=== PATIENT | male | born 1985 | race Caucasian/White ===

== ENCOUNTER → 2017-01-24 | Day surgery (SDC) | payer OTHER ==
[2017-01-24] VITALS (11 sets, daily range): BP systolic 116–161; BP diastolic 74–99; PULSE 66–107; RESP 8–26; O2SAT 92–100
[~2017-01-24] VITALS: Ht 180.3 cm; Wt 107.8 kg
[~2017-01-24] MED LIST: Albuterol HFA 60 Puff 8 Gm Inhaler INHALATION ONE; Albuterol-Ipratropium 3 mL Inhalation Solution NEB PRN; Bupivacaine-MPF 0.5% 30 mL Inj INFILTRATE ONE; CeFAZolin 2 Gm/50 mL D5W Duplex Bag IV ONE; CeFAZolin Inj 2 GM in IV Premix 1 EACH IV ONE; Dexamethasone 4 mg/mL Inj ONE; EPHEDrine Sulfate 50 mg/mL Inj IVPUSH PRN; HYDROmorphone 1 mg/mL Inj IVPUSH PRN; Lactated Ringer's 1,000 ML IV ONE; Lactated Ringer's 1,000 ML IV SCH; Lactated Ringer's 500 ML IV PRN; Lidocaine 1%-Epi 1:100,000 20 mL Inj NERVEBLOCK ONE; MULT-1018 PO; MetoCLOpramide 5 mg/mL 2 mL Inj IVPUSH PRN; OXYC-465 PO; Ondansetron 2 mg/mL 2 mL Inj IVPUSH PRN; Phenylephrine 10,000 mCg/mL Inj IVPUSH PRN; Propofol 10 mg/mL 20 mL Inj ONE; Succinylcholine Chloride 20 mg/mL 5 mL Inj ONE; fentaNYL-PF 50 mCg/mL 2 mL Inj IVPUSH PRN; fentaNYL-PF 50 mCg/mL 2 mL Inj ONE; oxyCODONE-Acetamin 5-325 mg Tablet PO PRN
--- NOTE | 2017-01-24 10:19 | PCM.HPANE ---
Patient Data Surgeon Admitting Provider: Attending Provider:Ezequiel Andrews DPM Primary Care Physician:Samson Fritz Other Provider:Elaine Gtz Anesthesia Reason for Visit Left Foot Gastrocnemius Equinos,Plantar Fasciitis Ht/WT & BMI Height (Feet): 5 Height (Inches): 11 Weight (Kilograms): 107.8 Body Mass Index 33.00 Allergies Coded Allergies: naproxen (Verified Allergy, Intermediate, upset stomach, 01/22/17) Past Anesthesia History Anesthesia History: Denies:: Abnormal Airway, Anesthesia Reactions, Difficult Intubation, Fam Anesthesia Reaction, Fam Malignant Hypertherm, Malignant Hyperthermia Diabetes History Hx Diabetes?: No MRSA MRSA: No Medications Hypertension Medication: No Home Meds Incl Beta Ladan: No Reported Medications Multivitamin (Multi Vitamin Daily)1 Each Tablet1 Each PO DAILY 30 Days Ref 0 01/17/17 oxyCODONE-Acetaminophen 7.5-325 mg 1 Each Tablet1 Tab PO Q6H PRN For Pain Ref 0 01/17/17 History History of ENT Problems?: No HEENT History: Denies:: Abnormal Airway Difficult Intubation Dysphagia Hearing Problem Sinus Problem TMJ Denture Type: None Teeth Condition: Within Normal Limits Hx of Heart Problems?: No Cardiovascular History: Denies:: AICD Abdominal Aortic Aneurism Atrial Fibrillation Cardiac Surgery Chest Pain Congestive Heart Failure Coronary Artery Disease Edema Heart Murmur Hypertension Irregular Heartbeat Pacemaker Peripheral Vascular Rheumatic Fever Thrombophlebitis Valvular Heart Disease Hx of Respiratory Problem?: No Respiratory History: Denies:: Use of C-PAP Machine Use of Inhalers / NEBS Hx Neurologic Problems?: No Neurological History: Denies:: CVA Seizures TIA Hx of GI Problems?: No Gastrointestinal History: Denies:: Cirrhosis Gastroesphageal Reflux Liver Disease Hx of Problems?: No Genitourinary History: Denies:: HX of Hemodialysis HX of Peritoneal Dialysis: No Male Hx: Denies:: Prostate Problems Scrotal Mass Testicular Surgery Skin History: Denies:: History Skin Disorders? Pressure Ulcers Hx Musculoskeletal Problems?: Yes Musculoskeletal History: Denies:: Back Injury Degenerative Joint Fibromyalgia Joint Replacement Musculoskeletal Trauma Osteoarthritis Hx of Psycho/Social Problems?: No Hx Surgeries?: Yes (circumsision at age 10) Other History: Denies:: Cancer Hospitalization History Blood Transfusions: Positive for:: Accept Blood Products? Denies:: Blood Transfusions Hx Diabetes: No Hx Alcohol Use: NoAlcoholic Drinks Per Day: 3 beers a weekHx Substance Use: NoHave You Smoked inLast 12 mo: YesApprox How Many Cigarettes/day: 1/2 PPD Stop/Bang S-Snoring: Do You Snore Loudly: No T-Tired: feel tired, fatigued: No O-Obsered: Observed not breath: No P-Blood Pressure: treated: No B- Body Mass Index > 35 kg/m2: No A- Age over 50: No N- Neck Large Circumference: Yes G- Gender Male: Yes ADONIS Total Score: 2 ADONIS Risk Assessment: Low Risk, <3 Yes Risk Assessment Category Category 1A: Patient has history of documented sleep apnea, and HAS NOT received any narcotic, sedative or anesthesia administration during this stay. Category 1B: Patient has history of documented sleep apnea, and HAS received any narcotic , sedative or anesthesia administration during this stay Category 2: Patient has SUSPECTED Obstructive Sleep Apnea, and HAS received any narcotic , sedative or anesthesia administration during this stay. Category 3: Patient has SUSPECTED Obstructive Sleep Apnea and HAS NOT received narcotic, sedative or anesthesia administration during this stay. Category 4: Outpatient in Procedural Areas with known sleep apnea or who screen positive for High Risk via the STOP/BANG questionnaire. Exam Exam Vital Signs Vital Signs Date Time Temp Pulse Resp B/P Pulse Ox O2 Delivery O2 Flow Rate FiO2 01/24/17 08:36 36.5 83 17 152/95 96 Room Air General Appearance: Alert, Oriented X3, Cooperative, No Acute Distress HEENT/AIRWAY: MP 3 Lungs: Clear to Auscultation, Normal Air Movement Heart: Exam Unremarkable, Regular Rate/Rhythm, Normal S1, Normal S2 Meds/Labs/Diagnostics Admission Meds Current Medications Lactated Ringer's (Lr) 1,000 ml @ 120 mls/hr Q8H20M ONCE IV Last administered on 01/24/17t 08:36; Start 01/24/17 at 07:39; Stop 01/24/17 at 15:58 Plan Impression Patient chart reviewed, patient interviewed and anesthestic plan with risks, benefits, and alternatives discussed, and informed consent obtained. NPO per Anesth. Guidelines: Yes ASA Physical Status: ASA2 Mod Systemic Disease Anesthetic Plan: GA Bene/Risks/Altern/Consents: Yes HP Complete Prior to Induction: Yes Niranjan Haddad MD Jan 24, 2017 10:19
--- NOTE | 2017-01-24 12:20 | PCM.PODPO ---
Podiatry Operative Report Date of Service: Jan 24, 2017 Date of Service Jan 24, 2017 Pre Operative Diagnosis Gastrocnemius equinus and chronic plantar fasciitis left Post Operative Diagnosis Same Procedure Gastrocnemius recession left Surgeon Surgeon: Ezequiel Andrews DPM Assistants: None Indication for Procedure Chronic plantar fasciitis and gastrocnemius equinus left Findings Same Details of Procedure Patient was brought to the operating suite and surgical timeout observed. Limb was identified and patient was intubated on the gurney, then rolled supine onto a [place] frame fall bony prominences padded. Incisional site was demarcated 4 fingerbreadths above the flare of the Achilles tendon slightly medial to midline. The site was infiltrated with approximately 10 cc 1% lidocaine with epinephrine and 0.5% Marcaine plain. The extremity was then prepped and draped in the usual aseptic manner. Attention was directed to the posterior calf for an approximately 2 cm linear incision was made overlying the gastrocnemius aponeurosis slightly medial to the midline. This incision was deepened via sharp and blunt dissection and superficial bleeders cauterized. Once dissection was performed, the deep fascia was incised dissection continued through the adipose layer and self retraining retractors applied. The gastrocnemius peritenon was incised linearly and lifted medially and laterally exposing the gastrocnemius aponeurosis. A transverse sectioning of the aponeurosis was performed utilizing a #67 Haskell blade with care taken to avoid the underlying soleal muscle belly. Medial and lateralmost fibers were transected with a scissor. The site was well visualized. With the knee extended ankle dorsiflexed +10 dorsiflexion was achieved, approximately 2 cm of lengthening was noted. The site was copiously irrigated with saline, the paratenon was repaired with 4-0 Vicryl stitch with 4-0 Vicryl and skin with Prolene. An additional 6 cc 0.5% Marcaine without epinephrine was infiltrated at the site to augment postoperative analgesia and a bacitracin Adaptic dressing was applied followed by a noncompressive gauze bandage. Patient was placed in a tall cast boot. The patient was rolled supine, and extubated uneventfully. There were no complications. Grafts, Implants: None Complications There were no periprocedural complications identified. Condition Stable Anesthetic Administered: GA Drains: None Catheters: None Output, Estimated Blood Loss: 0 Blood Admin during surgery: No Surgical Specimen Removed: No Specimen sent to Pathology: No Post Operative Plan Patient will remain nonweightbearing on crutches and be seen in 5 days in the clinic for dressing change and wound check. Postoperative instructions have been dispensed in writing and reviewed verbally. Ezequiel Andrews DPM Jan 24, 2017 12:20
--- NOTE | 2017-01-24 13:08 | PCM.ANEP1 ---
Post Anesthesia PACU Phase 1 Assessment Date of Service: Jan 24, 2017 Vital Signs Vital Signs Date Time Temp Pulse Resp B/P Pulse Ox O2 Delivery O2 Flow Rate FiO2 01/24/17 13:01 66 16 140/83 95 Room Air 01/24/17 12:50 36.4 79 18 139/76 93 Room Air 01/24/17 12:46 85 11 153/93 93 Room Air 01/24/17 12:40 89 8 146/92 93 Room Air 01/24/17 12:29 90 17 154/92 92 Room Air 01/24/17 12:22 93 16 161/85 95 Room Air 01/24/17 12:17 98 21 161/94 100 Simple Mask 10 01/24/17 12:10 107 16 153/99 100 Simple Mask 10 01/24/17 12:05 36.3 102 26 145/88 100 Simple Mask 10 01/24/17 08:36 36.5 83 17 152/95 96 Room Air Anesthetic Administered: GA Level of Alertness: Awake, talking MACHADO's with Equal Strength: Yes Pain: No Nausea or Vomiting: No CV Function & Hydration Stable: Yes Airway Device: Oxygen Delivery: Nasal Cannula Lungs: Clear to Auscultation, Normal Air Movement PACU Phase 2 Assessment Complications: No Follow up Care: No Patient Instructions Provided: Yes Comments AGain recommended smoking cessation with bronchospasticity. Niranjan Haddad MD Jan 24, 2017 13:08
== END | disposition home or self-care (01) ==
LOC: SAS 08:17
PROVIDERS: ATTEND Podiatrist
DX: M21.6X2 Other acquired deformities of left foot (principal); M72.2 Plantar fascial fibromatosis; F17.210 Nicotine dependence, cigarettes, uncomplicated
CPT/HCPCS: 27687; C1713; J0330; J0690; J1100; J2704; J3010; J7120